=== PATIENT | male | born 1995 | race Caucasian/White ===

== ENCOUNTER 2016-10-28 16:56 | Emergency (ER) | payer OTHER ==
[~2016-10-28] VITALS: Ht 172.7 cm; Wt 72.5 kg
[2016-10-28 18:18] VITALS: BP 119/74
--- NOTE | 2016-10-29 08:37 | REP ---
Right ankle series: Four views. History: Twisting injury. Findings: Four views of the right ankle demonstrate an intact ankle mortise. There is anterolateral soft tissue swelling. No fracture is seen. Impression: No fracture noted. Signed by Yaya Evans MD 10/29/2016 09:01 A
== END 2016-10-28 18:26 | disposition home or self-care (01) ==
LOC: M ED 17:39
DX: S93.491A Sprain of other ligament of right ankle, initial encounter (principal); X50.9XXA Other and unspecified overexertion or strenuous movements or postures, initial encounter; Y92.39 Other specified sports and athletic area as the place of occurrence of the external cause; Y93.67 Activity, basketball; Y99.8 Other external cause status; F17.200 Nicotine dependence, unspecified, uncomplicated

== ENCOUNTER 2017-11-12 23:02 | Emergency (ER) | payer OTHER ==
[2017-11-12] MEDS: LIDOCAINE W/EPINEPHRINE 1% 20ML VIAL SC (23:45)
[2017-11-12] MEDS: AMPICILLIN SOD/SULBACTAM SOD 3 GM in D5W MINI-BAG PLUS 100 ML IV (23:48)
[2017-11-13] MEDS: NORCO 5/325MG TABLET (BULK FOR ED) PO (00:24)
[2017-11-13] MEDS: LIDOCAINE 1% SDV INJ 30 ML VIAL SC (00:46)
== END 2017-11-13 00:47 | disposition home or self-care (01) ==
LOC: M ED 11-13 00:47
DX: S81.811A Laceration without foreign body, right lower leg, initial encounter (principal); S81.831A Puncture wound without foreign body, right lower leg, initial encounter; W54.0XXA Bitten by dog, initial encounter; Y92.099 Unspecified place in other non-institutional residence as the place of occurrence of the external cause; Y93.9 Activity, unspecified; Y99.9 Unspecified external cause status
CPT/HCPCS: 12004